=== PATIENT | male | born 1980 | race Caucasian/White ===

== ENCOUNTER 2017-04-02 06:36 | Emergency (ER) | payer MEDICAID ==
[~2017-04-02] VITALS: Ht 175.3 cm; Wt 80.0 kg
[2017-04-02 07:04] VITALS: BP 124/67
== END 2017-04-02 09:35 | disposition left against medical advice (07) ==
LOC: ER 07:32
DX: Z53.21 Procedure and treatment not carried out due to patient leaving prior to being seen by health care provider (principal)